=== PATIENT | female | born 1985 | race Caucasian/White ===

== ENCOUNTER 2017-11-14 06:50 | Inpatient (IN) | payer BC ==
[~2017-11-14] VITALS: Ht 167.6 cm; Wt 90.7 kg
[2017-11-14] MEDS ORDERED: LACTATED RINGERS 1,000 ML IV SCH (07:21)
[2017-11-14 07:23] VITALS: BP 139/71
[2017-11-14] MEDS ORDERED: CARBOPROST 250 MCG/ML AMP IM PRN (07:25)
[2017-11-14] MEDS ORDERED: METHYLERGONOVINE 0.2 MG/ML AMP IM PRN (07:25)
[2017-11-14] MEDS ORDERED: OXYTOCIN 10 UNITS/ML VIAL IM SCH (07:25)
[2017-11-14] MEDS ORDERED: OXYTOCIN 20 UNITS in LACTATED RINGERS 1,000 ML IV SCH (07:25)
[2017-11-14] MEDS ORDERED: OXYTOCIN 20 UNITS/LR PREMIX 1,000 ML IV ONE (07:33)
[2017-11-14] MEDS ORDERED: ceFAZolin 1,000 MG VIAL ONE (07:42)
[2017-11-14] MEDS ORDERED: CEFAZOLIN SODIUM 2 GM/D5W PM 50 ML IV SCH (08:00)
[2017-11-14] MEDS ORDERED: LIDOCAINE 2% 1000 MG/50 ML VIAL INJ ONE (08:54)
[2017-11-14 09:22] LABS: BASOPHILS # (AUTO) 0.1 K/uL (0.00-0.22); BASOPHILS % (AUTO) 0.3 % (0.0-2.0); EOSINOPHILS # (AUTO) 0.1 K/uL (0-0.4); EOSINOPHILS % (AUTO) 0.4 % (0.0-4.0); HEMATOCRIT 35.7 % (36-48); HEMOGLOBIN 12.4 g/dL (12.0-16.0); LYMPHOCYTES # (AUTO) 1.2 K/uL (2.5-16.5); LYMPHOCYTES % (AUTO) 7.7 % (20.5-51.1); MEAN CORPUSCULAR HEMOGLOBIN 32 pg (27-31); MEAN CORPUSCULAR HGB CONC 35 g/dL (33-37); MEAN CORPUSCULAR VOLUME 91.6 fL (80-94); MONOCYTES # (AUTO) 0.6 K/uL (0.8-1.0); MONOCYTES % (AUTO) 3.6 % (1.7-9.3); NEUTROPHILS # (AUTO) 13.9 K/uL (1.8-7.7); PLATELET COUNT (AUTO) 254 K/uL (140-450); RED CELL DISTRIBUTION WIDTH 13.5 % (11.6-13.7); WHITE BLOOD COUNT (AUTO) 15.8 K/uL (4.8-10.8)
[2017-11-14 09:39] LABS: PROTHROMBIN TIME 9.2 secs (10.8-13.4)
[2017-11-14 10:46] VITALS: BP 138/95
--- NOTE | 2017-11-16 07:21 | NUR ---
RETRO H&P FAXED TO [facility] NO DISCHARGE SUMMARY [phone]
== END 2017-11-14 11:20 | disposition home or self-care (01) | DRG 779 ==
LOC: MLD 06:50
PROVIDERS: ADMIT Obstetrics & Gynecology; ATTEND Obstetrics & Gynecology
PROC: 10E0XZZ Delivery of Products of Conception, External Approach (ICD-10-PCS; principal; 2017-11-14)
DX: O02.1 Missed abortion (principal); Z3A.17 17 weeks gestation of pregnancy; Z37.1 Single stillbirth
CPT/HCPCS: 36415; 85025; 85379; 85384; 85610; 85730; 86886; 86900; 86901; J0690; J2001; J2590; J7060; J7120

== ENCOUNTER 2021-05-22 12:37 | Emergency (ER) | payer BC, OTHER ==
[~2021-05-22] VITALS: Ht 167.6 cm; Wt 88.5 kg
[2021-05-22 12:37] VITALS: BP 145/93
--- NOTE | 2021-05-22 12:41 | NUR ---
BIBA to bed 07
--- NOTE | 2021-05-22 12:45 | NUR ---
36 y/o F [facility]A [employer] c/o anxiety since this morning worsening while at work. Pt A&Ox4, ambulatory, reports difficulty breathing +chest pressure 6/10 pressure/heavy/constant, non-radiating to left side of chest. EMS reports dizziness upon standing; pt unable to take deep breaths coached with breathing with minor relief. Denies nausea, vomiting, headache, blurry vision. No meds prior to arrival. SpO2 99% on room air. EMS coached patient with breathing exercises with little relief. Pt states recent stressors of divorce and family member passing away. Reports last anxiety attack one week ago and states today's episode feels worse. lead auditor in place. Lung sounds CTA. Bed locked in lowest position, side rails x 1. PMH/Sx/Meds: anxiety NKDA
--- NOTE | 2021-05-22 12:58 | NUR ---
AJITH Silva is evaluating pt at bedside
[2021-05-22] MEDS ORDERED: NACL 0.9% 1,000 ML IV ONE (13:10)
[2021-05-22] MEDS ORDERED: ASPIRIN 325 MG TAB PO ONE (13:10)
[2021-05-22] MEDS ORDERED: LORazepam 2 MG/ML VIAL IVP ONE ×2 (13:10→14:05)
--- NOTE | 2021-05-22 13:16 | NUR ---
RAD at bedside
[2021-05-22] MEDS ORDERED: ONDANSETRON 4 MG/2 ML VIAL IVP ONE (13:35)
[2021-05-22 13:54] LABS: ALBUMIN 4.6 g/dL (3.4-5.0); ANION GAP 15.5 (8-16); CARBON DIOXIDE 25.3 mmol/L (21-32); CREATININE 0.8 mg/dL (0.6-1.3); POTASSIUM 3.8 mmol/L (3.5-5.1); TOTAL BILIRUBIN 1.1 mg/dL (0.0-1.0)
--- NOTE | 2021-05-22 13:57 | NUR ---
Visitor (coworker) at bedside with pt.
[2021-05-22 14:25] LABS: BASOPHILS % (AUTO) 0.7 % (0.0-2.0); EOSINOPHILS % (AUTO) 0.7 % (0.0-4.0); HEMATOCRIT 43.9 % (36-48); HEMOGLOBIN 15.6 g/dL (12.0-16.0); LYMPHOCYTES # (AUTO) 1.5 K/uL (2.5-16.5); LYMPHOCYTES % (AUTO) 25.2 % (20.5-51.1); MEAN CORPUSCULAR HEMOGLOBIN 31 pg (27-31); MEAN CORPUSCULAR HGB CONC 36 g/dL (33-37); MEAN CORPUSCULAR VOLUME 88.5 fL (80-94); MONOCYTES # (AUTO) 0.4 K/uL (0.8-1.0); MONOCYTES % (AUTO) 6.8 % (1.7-9.3); NEUTROPHILS % (AUTO) 66.6 % (42.2-75.2); PLATELET COUNT (AUTO) 389 K/uL (140-450); RED BLOOD CELL COUNT(AUTO) 4.96 MIL/uL (4.20-5.40); RED CELL DISTRIBUTION WIDTH 13.2 % (11.6-13.7)
--- NOTE | 2021-05-22 14:31 | NUR ---
Patient resting in semi-fowlers position with groundwater monitoring technician in place. Bed locked in lowest position, side rails x 1.
--- NOTE | 2021-05-22 16:15 | NUR ---
Patient states no nausea; rates no pain states "pressure." Reports feeling woosy since Ativan IVP. Emesis bag at bedside. intensive care unit registered nurse in place; SpO2 99% on room air. VSS. Respirations even/unlabored. Bed locked in lowest position, side rails x 1.
[2021-05-22 16:27] VITALS: BP 129/86
[2021-05-22] MEDS ORDERED: ATI.5 PO (16:27)
--- NOTE | 2021-05-22 17:06 | NUR ---
IV removed, catheter intact and site benign. Applied folded 2x2 gauze and tape to stop bleeding.
--- NOTE | 2021-05-22 17:09 | NUR ---
Patient discharged with v/s stable. Written and verbal after care instructions given and explained for Nonspecific Chest Pain, Panic Attack. Patient alert, oriented and verbalized understanding of instructions. Ambulatory with steady gait. All questions addressed prior to discharge. ID band removed. Patient advised to follow up with PMD. Rx of Ativan given. Patient educated on indication of medication including possible reaction and side effects. Opportunity to ask questions provided and answered.
== END 2021-05-22 17:09 | disposition home or self-care (01) ==
LOC: MED 12:37
DX: R07.2 Precordial pain (principal); F41.9 Anxiety disorder, unspecified; R03.0 Elevated blood-pressure reading, without diagnosis of hypertension; H53.8 Other visual disturbances; Z79.899 Other long term (current) drug therapy
CPT/HCPCS: 36415; 71045; 80053; 81025; 84484; 85025; 93005; 96361; 96374; 96375; 96376; 99285; J2060; J2405; J7030